=== PATIENT | female | born 1980 | race Caucasian/White ===

== ENCOUNTER 2020-12-14 00:47 | Emergency (ER) | payer SELFPAY ==
[~2020-12-14] VITALS: Ht 167.6 cm; Wt 56.8 kg
[2020-12-14 01:06] VITALS: Ht 167.6 cm; Wt 56.8 kg
[2020-12-14 02:46] VITALS: BP 100/50
== END 2020-12-14 02:48 | disposition home or self-care (01) ==
LOC: D.ER 00:47
DX: M25.552 Pain in left hip (principal); G89.29 Other chronic pain